=== PATIENT | female | born 1965 | race Caucasian/White ===

== ENCOUNTER 2024-11-03 13:21 | Emergency (ER) | payer OTHER, SELFPAY ==
[2024-11-03 13:23] VITALS: BP 162/93
--- NOTE | 2024-11-03 15:56 | ED.GENMED ---
History of Present Illness
General
Chief Complaint: Fall
Source: patient
Exam Limitations: none
Time Seen by Provider: 11/03/24 15:35
History of Present Illness
History of Present Illness:
See MDM
Past History
Past History
ED Past Medical History: Hypercholesterolemia
ED Past Surgical History: None
Social History
Tobacco: Non-smoker
Alcohol: None
Phy Exam
Physical Exam
Physical Exam:
See MDM
Course
Orders/Labs/Results
Orders:
Orders
11/03/24 13:[address] [CT Head W/o Iv Contrast] Urgent
Comment:
Reason For Exam: fall, head strike
Vital Signs
Initial and Last Documented VS:
Initial Vital Signs
Temp Pulse Resp BP Pulse Ox
98 F 55 16 162/93 100
11/03/24 13:23 11/03/24 13:23 11/03/24 13:23 11/03/24 13:23 11/03/24 13:23
Last Documented Vital Signs
Temp Pulse Resp BP Pulse Ox
98 F 55 16 162/93 100
11/03/24 13:23 11/03/24 13:23 11/03/24 13:23 11/03/24 13:23 11/03/24 13:23
Procedures
Laceration Closure
Left Lateral Forehead:
Status of Wound: clean
Description of Wound Edges: ragged
Preparation: cleaned with Betadine
Anesthesia: 1% Lidocaine with epi
Revision/Debridement: routine- no revision
Wound exploration: explored to base- no FB
Type of Closure: single layer closure
Skin Closure Material: 6-0 nylon
Number of sutures: 2
MDM/Problems Addressed
Differential Diagnosis Includes:
HPI and MDM Narrative:
59-year-old female presenting for evaluation of left-sided head trauma. Patient was walking her dog and she was pulled causing her to fall forward. She hit the left side of her head against the gravel pathway. She went to urgent care and sent to
the emergency department for evaluation. CT head negative prior to my assessment. She does have a stellate laceration to her left forehead. She states tetanus is up-to-date. 2 stitches were placed and patient tolerated procedure well.
Physical exam
General: Well appearing and non-toxic
HEENT: protecting airway. 2.5 cm stellate laceration to left
Neck: supple
CV: No evidence of cyanosis
Resp: No accessory muscle use
Abd: Non-distended
Extremities: No deformities
Neuro: alert
Psych: Normal affect
Skin: Laceration to left congregational
Problems Addressed including Acute and Chronic Conditions affecting care:
1. Head injury
Acuity: acute
Prognosis: stable
Details: CT head negative
2. Facial laceration
Acuity: acute
Prognosis: stable
Details: 2 stitches placed
Differential Diagnosis (but not limited to): Concussion, head injury, contusion, abrasion, laceration
Testing considered: CT neck
Drug therapy (if applicable): OTC meds, please see d/c instruction regarding Rx drugs
Amount and/or Complexity of Data Reviewed
Clinical info obtained from: Patient
External data reviewed: N/A
Labs I independently reviewed (but not limited to): N/A
Radiology: N/A
Pulse Ox: not hypoxic
EKG independently reviewed: N/A
Certified Pathology Assistant: N/A
Critical Care: N/A
Risk of Complication:
Social Determinants of health: Good social support
Discussed with other providers: N/A
Escalation of Care includes Admit/Obs: After being observed in the Emergency Department, pt stable for discharge.
Occasional wrong word or 'sound a like' substitutions may have occurred due to the inherent limitations of voice recognition software. Read the chart carefully and recognize, using context, where substitutions have occurred.
*Critical Care Note
Total Time (30-74mins, 75-104mins- exclusive of procedures): Not Applicable
ED Attending Note
-
Portions of this chart may have been created with voice recognition software.� Occasional wrong word or��sound alike� substitutions may have occurred due to the inherent limitations of voice recognition software.
Discharge Plan
Departure
Patient Disposition: Home (Routine Discharge)
Date of Disposition: 11/03/24
Time of Disposition: 15:56
Patient with high blood pressure during this ER visit?: Yes
Discharge Problem:
Head injury
Instructions: Head Injury in Adults (DC), Laceration Repair With Stitches (DC)
Activity Restrictions/Additional Instructions:
Keep wound clean and dry, change dressing if it becomes soiled or wet. Watch for signs of infection: fever over 100.5', increasing pain, red streaks around wound, swelling, drainage of pus, or bad smell. If any of these happen, return to ED
promptly. Return to ED or make an appointment with your doctor to have the 2 sutures removed in 5-7 days. All wounds may scar, however you may reduce the appearance of scarring by avoiding sun exposure to the scar and applying skin moisturizer with
spf protection to the scar once the wound is healed.
Interventions
Interventions:
*Risk Screen - Suicide Last Done: 11/03/24 13:26
*Neglect/Abuse Screening Last Done: 11/03/24 13:26
Discharge Date and Time
Print Language: MACEDONIAN
[2024-11-03 16:36] VITALS: BP 135/74
== END 2024-11-03 16:38 | disposition home or self-care (01) ==
LOC: EMR 13:21
PROVIDERS: EMERGENCY PHYSICIAN Student in an Organized Health Care Education/Training Program; FAMILY PHYSICIAN Registered Nurse
DX: S09.90XA Unspecified injury of head, initial encounter (principal); W19.XXXA Unspecified fall, initial encounter; E78.00 Pure hypercholesterolemia, unspecified
CPT/HCPCS: 99284; 70450